=== PATIENT | female | born 1960 | race Caucasian/White ===

== ENCOUNTER → 2021-01-15 | Outpatient (CLI) | payer BC ==
[~2021-01-15] VITALS: Ht 162.6 cm; Wt 95.7 kg
[~2021-01-15] MED LIST: AVAPRO 150 MG150 MG PO; CLARITIN-D 241 EAC1 PO; DILTIAZEM ER180 M2 PO; DULOXETINE HCL30 MG PO; HYDROXYZINE HCL25 M2 PO; IBUPROFEN 800800 M1 PO; MOBIC15 MG PO; OMEPRAZOLE 20 M20 M1 PO; ROXICODONE5 M2 PO; SOMA350 MG PO; XANAX 0.25 MG0.25 MG PO
[2021-01-15 09:21] VITALS: BP 134/94
--- NOTE | 2021-01-15 10:05 | NUR ---
Pain Clinic Assessment: 1. History of Osteoarthritis: Left Upper Extremity Right Upper Extremity Left Lower Extremity Right Lower Extremity History of Rheumatoid Arthritis: Not Applicable 2. Height: 5 ft. 4 in. 162.6 cm. Weight: 211.0 lb. oz. 95.709 kg. Patient's BMI: 36.2 3. Vital Signs: BP: 134/94 Pulse: 88 Resp: 16 Temp: 02 Sat: 100 ECG Mon: 4. Pain Intensity: 4 5. Fall Risk: Dizziness: N Needs help standing or walking: N Fallen in the last 3 months: N Fall risk comments: 6. Patient on Blood Thinner: None 7. History of Hypertension: Y 8. Opioid Therapy greater than 6 weeks: Y Opiate Contract Signed: 9. Risk Assessment Tool Provided: LOW 10. Functional Assessment Tool: 11. Recreational Drug Use: Never Drug Type: Tobacco Use: Never Smoker Tobacco Type: Amount or Packs/day: How Many Years: Alcohol Use: Yes Frequency: Special Occasions Quant: 1-2
--- NOTE | 2021-01-16 14:53 | HPC ---
[facility] [address] [place] [address] PAIN MANAGEMENT CONSULTATION Name: SIDDHARTHA HUERTAS Room #: REG [facility] MSejal.#: [id number] Admission: 01/15/21 Attend Phys: Brett Gunn DO Discharge: Date of : 62 Report #: [id number] THIS REPORT FOR: cc: RANJAN SWARTZ Physician not on staff Brett Gunn DO ~ DATE OF SERVICE: 01/15/2021 REFERRING PHYSICIAN: Dr. Danny Shah CHIEF COMPLAINT: Axial back pain. HISTORY OF PRESENT ILLNESS: As you know, the patient is a 60-year-old female who suffers from longstanding history of low back pain that has been present for years. There was an exacerbation of symptoms about 6 months ago. She denies injury or trauma. She states that she has found improvement with IV Toradol and ciwf-lqg-ywpmygw nonsteroidal anti-inflammatories, but all other agents have been unsuccessful alleviating symptoms. The patient has sought evaluation through her primary care physician and her back joiner in regards to this issue. Imaging of the lumbar spine was obtained and was found that she had severe arthritic changes at the L5-S1 level and subsequently referred to our clinic to discuss interventional treatment options. The patient reports today pain is rhythmic. She describes the pain as cramping, throbbing, and sharp, places current pain score 4/10, daily average of 4/10, worst pain has been is 9/10. The patient states pain is exacerbated with heavy lifting and bending over. Pain tends to improve with rest, lying flat, IV Toradol and sdhv-rft-dbsftsy nonsteroidal anti-inflammatories. She has been referred to our service to discuss interventional treatment options to address axial back pain. PAST MEDICAL HISTORY: 1. Diabetes mellitus type 2. 2. Hypertension. 3. Degenerative joint disease. 4. Osteoarthritis. 5. Morbid obesity, status post gastric bypass. PAST SURGICAL HISTORY: 1. Hysterectomy. 2. Left total hip arthroplasty. 3. Gastric bypass. 4. Right total hip arthroplasty. 5. Right shoulder replacement. 6. Left shoulder replacement. [facility] [address] [place] [address] PAIN MANAGEMENT CONSULTATION Name: SIDDHARTHA HUERTAS Room #: REG [facility]..#: [id number] Admission: 01/15/21 Attend Phys: Brett Gunn DO Discharge: Date of : 62 Report #: [id number] SOCIAL HISTORY: The patient denies current tobacco use. Denies IV or illicit drug use. Admits to occasional alcohol beverage. 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 She is on FMLA for recent shoulder surgery. She is not in litigation in regards to pain. She is not receiving disability income. REVIEW OF SYSTEMS: Positive for fatigue and weakness, wearing corrective eyewear, cataracts, diabetes mellitus type 2, generalized osteoarthritis. All other review of systems negative per 12-point review of systems other than those listed in history of present illness. Pain impact score 24/70 indicating saag-us-spfemjrk interference of daily activities secondary to pain. ALLERGIES: SULFA, LEVAQUIN AND CIPROFLOXACIN. CURRENT MEDICATIONS: Ibuprofen 800 mg b.i.d. p.r.n., Claritin-D 1 tab per day, Soma 350 mg p.r.n., meloxicam 15 mg once a day, irbesartan 150 mg once a day, omeprazole 20 mg once a day, duloxetine 30 mg p.o. at bedtime, hydroxyzine 25 mg once a day, diltiazem ER 180 mg once a day. IMAGING: MRI of the lumbar spine and pelvis shows no evidence of sacroiliitis or acute internal derangement. There is multilevel lower lumbar spondylosis, most advanced at the L4-L5 and L5-S1 level with left greater than right. The soft tissue structures all appeared normal. PHYSICAL EXAMINATION: VITAL SIGNS: Blood pressure 134/94, pulse 88, respiratory rate 16 and unlabored. The patient is 100% on room air. Height 5 feet 4 inches tall, weight 211 pounds, BMI calculated 36.2. GENERAL: Well-developed, well-nourished, well-hydrated exogenously obese 60-year-old female appearing her stated age, placing current pain score around 4/10. HEENT: Normocephalic, atraumatic. Pupils are equal, round and reactive. NEUROLOGIC: Speech is fluent. The patient is wearing a mask in compliance with COVID-19 regulations. LUNGS: Appear clear. No wheeze, rhonchi or rales. CARDIOVASCULAR: Regular. No appreciable gallop, no rub. ABDOMEN: Soft, obese, normoactive bowel sounds. EXTREMITIES: Show no clubbing, no cyanosis. No appreciable edema. The patient is in a sling protecting the left upper extremity, status post total shoulder replacement. PHYSICAL EXAMINATION: MUSCULOSKELETAL: Lower extremity strength equal and symmetrical 5/5, intact to light touch from L1 through S2 dermatomes. Seated straight leg raising negative. Supine straight leg raising negative. Jeanna's test is negative. Modified Gaenslen's positive for axial low back pain. Ankle clonus negative. [address] [address] PAIN MANAGEMENT CONSULTATION Name: SIDDHARTHA HUERTAS Room #: REG [facility]#: [id number] Admission: 01/15/21 Attend Phys: Brett Gunn DO Discharge: Date of : 62 Report #: [id number] Babinski is negative. Stance is slightly forward flexed with minimal loss of lordotic curvature. Lumbar provocation testing including extension, rotation, lateral flexion all intensify axial back pain without radiation. There is palpatory tenderness over the L4-L5, L5-S1 facet joints bilaterally. ASSESSMENT: 1. Lumbosacral spondylosis without radiculopathy. 2. Facet arthropathy of the lumbar spine. 3. Chronic intractable pain. PLAN: 1. Based on today's physical exam and history the patient has provided, the description the patient uses in regards to pain as well as location of symptoms, the likely source of the patient's pain is the facet joints at L4-L5 and L5-S1. This is confirmed with recent imaging of the lumbar and pelvis area, which shows advanced arthritic changes at the L5-S1 level and wgluuftg-mr-vpvbvw changes at the L4-L5 level. These areas correlate to the pain location the patient is currently describing and the symptoms that she is experiencing that are axial in nature correlate with the facet distribution of pain. After our discussion of the findings of her MRI and how they correlate to her current symptoms, we then discussed the treatment options we have available. The following was discussed with the patient today. We discussed physical therapy, stretching exercise, core strengthening and a concerted effort at weight loss. This will be necessary for the patient to maintain analgesic benefit. Her centripetal obesity is increasing to accentuation of the lordotic curvature of the lumbar spine, leading to hyperlordotic condition, which places the facets at greater opposition causing increase in pain and increased arthritic changes. This could be improved with weight loss. We discussed medication management, though the patient has undergone gastric bypass, this will preclude her from remaining on nonsteroidal anti-inflammatories, which are the drug choice for this process. We discussed intra-articular facet injections, medial branch nerve blocks and radiofrequency lesioning as a treatment course. We also discussed StabiLink, a new percutaneous spinous process fusion device that could assist in her axial back pain. After reviewing the risks and benefits of all the proposed treatment options, the patient chose to move forward with medial branch nerve blocks and possible radiofrequency lesioning. 2. The patient was advised that due to third constitution party payer restrictions, authorization would have to be obtained before the patient could undergo medial branch nerve blocks and radiofrequency lesioning. The patient was advised that this authorization could take anywhere from 24-72 hours to obtain. We will begin that process immediately. Once it has been completed, we will have the patient return for medial branch blocks. We had considered originally looking towards facet injections, but given the severity of the findings at the L5-S1 level, more definitive treatment would be necessary. We will obtain [address] [address] PAIN MANAGEMENT CONSULTATION Name: SIDDHARTHA HUERTAS Room #: REG [facility]#: [id number] Admission: 01/15/21 Attend Phys: Brett Gunn DO Discharge: Date of : 62 Report #: [id number] authorization on medial branch blocks and hopefully have the patient back in the next 24 hours. 3. No medication changes made at today's visit. The patient will continue current medical therapy as prior prescribed. 4. We plan to see the patient back in followup visit as quickly as we can obtain authorization for the patient to undergo medial branch nerve blocks and possibly progressing towards radiofrequency lesioning of medial branch nerves to address axial back pain. 5. We wish to thank Dr. Danny Shah for the opportunity to see this patient in consultation. We will keep you apprised of her response to treatment as we address facet arthropathy pain. Again, we wish to thank you for the opportunity to see the patient in consultation. <ELECTRONICALLY SIGNED> By: Brett Gunn DO 01/16/21 [id number] [id number] Brett Gunn DO /nt
== END ==
LOC: PAIN 12-25 09:25
PROVIDERS: ATTEND Anesthesiology Pain Medicine
DX: M47.26 Other spondylosis with radiculopathy, lumbar region (principal); G89.29 Other chronic pain

== ENCOUNTER → 2021-01-16 | Outpatient (CLI) | payer BC ==
[~2021-01-16] VITALS: Ht 162.6 cm; Wt 95.7 kg
--- NOTE | ~2021-01-16 | HPC ---
[facility] [place] [address] PAIN MANAGEMENT CONSULTATION Name: SIDDHARTHA HUERTAS Room #: REG [facility]y.#: [id number] Admission: 01/16/21 Attend Phys: Brett Gunn DO Discharge: Date of : 62 Report #: [id number] THIS REPORT FOR: cc: RANJAN HILL Physician not on staff Brett Gunn DO ~ DATE OF SERVICE: 01/16/2021 REFERRING PHYSICIAN: Dr. Danny Shah. PRIMARY CARE PHYSICIAN: Dr. Ranjan Hill. CHIEF COMPLAINT: Axial back pain. HISTORY OF PRESENT ILLNESS: As you know, the patient is a 60-year-old female with longstanding history of low back pain, presenting years ago. She states that she had exacerbation of symptoms about 6 months ago. Denies injury or trauma. She was seen in consultation per the request of Dr. Danny Shah, the patient's rn nicu, for axial back pain. She was diagnosed with lumbosacral spondylosis without radiculopathy and facet arthropathy of the lumbar spine, which is the source of her symptoms. She was established today's appointment to undergo medial branch nerve blocks to address axial back pain. If she sees significant improvement with the initial injections, we will have her return for a second in series with a different medication. If again this shows good benefit, we would then move forward with radiofrequency lesioning for a more permanent treatment option. We also discussed at that last visit the possibility of fusion with the staple length product to address the L5-S1 level, specifically. The patient is considering this option, but wishes to begin with the medial branch nerve blocks, established the appointment today. The patient reports pain level today of about 9/10. ALLERGIES: SULFA, LEVAQUIN, CIPROFLOXACIN. CURRENT MEDICATIONS: Ibuprofen, Claritin-D, meloxicam, Soma, irbesartan, omeprazole, duloxetine, hydroxyzine, diltiazem ER. SOCIAL HISTORY: The patient denies current tobacco use. Denies IV or illicit drug use. Admits to occasional alcohol beverage. 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 She is on FMLA due to recent surgery. Unaccompanied today. IMAGING: No new imaging available. PHYSICAL EXAMINATION: VITAL SIGNS: Blood pressure 135/68, pulse 94, respiratory rate 16 and unlabored. The patient is 100% on room air. Height 5 feet 4 inches tall, [facility] [address] [place] [address] PAIN MANAGEMENT CONSULTATION Name: SIDDHARTHA HUERTAS [facility] [id number] Admission: 01/16/21 Attend Phys: Brett Gunn DO Discharge: Date of : 62 Report #: [id number] weight 211 pounds, BMI calculated at 36.2. GENERAL: Well-developed, well-nourished, well-hydrated, exogenously obese 60-year-old female appearing stated age, pain is rated today at 9/10. HEENT: Normocephalic, atraumatic. Pupils are round and responsive. The patient is wearing a mask in compliance with COVID-19 regulations. EXTREMITIES: Show no clubbing, no cyanosis. No appreciable edema. MUSCULOSKELETAL: The patient remains in a sling with the left upper extremity, status post total shoulder replacement. Lower extremity strength is symmetrical, 5/5. Seated straight leg raising negative. Supine straight leg raising negative. Jeanna's test negative. Modified Gaenslen's positive for axial low back pain. Lumbar provocation testing including rotation and lateral flexion all intensifies axial back pain. Forward flexion improves the patient's symptoms. ASSESSMENT: 1. Lumbosacral spondylosis without radiculopathy. 2. Facet arthropathy of the lumbar spine. 3. Chronic intractable pain. PLAN: 1. The patient has returned today in followup visit to undergo medial branch nerve blocks to address L3, L4, L5 medial branch nerves respectively. The patient was established today's appointment to undergo the procedure. She has been advised risks and benefits of the procedure. These risks include but are not necessarily limited to bleeding, bruising, infection, worsening pain, no relief of pain, also risk of temporary or permanent muscle weakness, temporary or permanent nerve damage, possible paralysis and . The patient states she understood and wished to proceed. 2. The patient was provided a prescription of Xanax 0.25 mg, she is to take one tab 30 minutes prior to her arrival at our appointment next week to address anxiety. She will be then given a second dose if necessary upon arrival. She will need a package car driver for transportation as she cannot drive or operate heavy equipment while on this medication. She was given #4 tablets, 2 for this next series of medial branch nerve blocks and if we move towards radiofrequency lesioning, 2 for the lesioning process. 3. We will see the patient back in followup visit next week for possible second in the series of medial branch blocks assuming she sees good and prolonged benefit with today's procedure. PROCEDURE NOTE PROCEDURE: Bilateral L3, L4, L5 medial branch blocks under fluoroscopic guidance. DESCRIPTION OF PROCEDURE: After obtaining written consent, the patient was taken back to fluoroscopy suite, placed in prone position with pillow under [address] [address] PAIN MANAGEMENT CONSULTATION Name: SIDDHARTHA HUERTAS Room #: REG [facility]#: [id number] Admission: 01/16/21 Attend Phys: Brett Gunn DO Discharge: Date of : 62 Report #: [id number] abdomen to decrease lumbar lordosis. Skin overlying lumbosacral area was then prepped and draped in aseptic fashion. The L4 transverse process corresponding the L3 medial branch nerve and the L5 transverse process corresponding the L4 medial branch nerve were visualized under AP fluoroscopy. The skin and subcutaneous tissue overlying target site of injection were anesthetized with 1 mL of 1% lidocaine utilizing a 27-gauge 1-1/4 inch needle. Four 22-gauge 3-1/2 inch spinal needles with bent tips were advanced under fluoroscopic guidance using a superior and inferior lateral to medial approach to the dorsal superior and medial aspect of the base of the transverse processes. The needles were then directed to reach their target locations. Oblique view facilitated needle placement with properly positioned needles within the middle of the eye of the [place] dog for each of the medial branch blocks. At each site, needles rested on periosteum. After negative aspiration for heme, 1 mL of bupivacaine 0.5% was injected slowly to avoid forcing the solution away from the target points. Colby were then removed. L5 dorsal ramus block, both on the left and right side was performed using a slightly oblique approach under fluoroscopic guidance, placing the needle within the groove between the sacral ala and the superior articular process of S1. Needle rested on periosteum. After negative aspiration for heme, 1 mL of bupivacaine 0.5% was injected at each site slowly to avoid forcing the solution away from the target points. Colby were then removed. Sterile bandage placed over injection sites. The patient tolerated procedure well, carefully escorted to recovery room in stable condition. No apparent complications. VAS before procedure rated at 9/10, VAS 10 minutes after procedure rated anywhere from 0-1-1/2/10. After meeting our discharge criteria, the patient discharged home. By: 1530 [id number] Brett Gunn, /nt
[2021-01-16 13:39] VITALS: BP 135/68
--- NOTE | 2021-01-16 13:50 | NUR ---
Pain Clinic Assessment: 1. History of Osteoarthritis: Left Upper Extremity Right Upper Extremity Left Lower Extremity Right Lower Extremity History of Rheumatoid Arthritis: Not Applicable 2. Height: 5 ft. 4 in. 162.6 cm. Weight: 211.0 lb. oz. 95.709 kg. Patient's BMI: 36.2 3. Vital Signs: BP: 135/68 Pulse: 94 Resp: 16 Temp: 02 Sat: 100 ECG Mon: 4. Pain Intensity: 9 5. Fall Risk: Dizziness: N Needs help standing or walking: N Fallen in the last 3 months: N Fall risk comments: 6. Patient on Blood Thinner: None 7. History of Hypertension: Y 8. Opioid Therapy greater than 6 weeks: Y Opiate Contract Signed: 9. Risk Assessment Tool Provided: LOW 10. Functional Assessment Tool: 11. Recreational Drug Use: Never Drug Type: Tobacco Use: Never Smoker Tobacco Type: Amount or Packs/day: How Many Years: Alcohol Use: Yes Frequency: Quant:
== END | disposition home or self-care (01) ==
LOC: PAIN 06:54
PROVIDERS: ATTEND Anesthesiology Pain Medicine
DX: M47.817 Spondylosis without myelopathy or radiculopathy, lumbosacral region (principal); M47.816 Spondylosis without myelopathy or radiculopathy, lumbar region; G89.29 Other chronic pain; Z98.890 Other specified postprocedural states; Z79.899 Other long term (current) drug therapy; Z88.2 Allergy status to sulfonamides; Z88.8 Allergy status to other drugs, medicaments and biological substances

== ENCOUNTER → 2021-01-22 | Outpatient (CLI) | payer BC ==
[~2021-01-22] VITALS: Ht 162.6 cm; Wt 99.7 kg
[2021-01-22 09:18] VITALS: BP 119/77
--- NOTE | 2021-01-22 09:30 | NUR ---
Pain Clinic Assessment: 1. History of Osteoarthritis: Left Upper Extremity Right Upper Extremity Left Lower Extremity Right Lower Extremity History of Rheumatoid Arthritis: Not Applicable 2. Height: 5 ft. 4 in. 162.6 cm. Weight: 219.8 lb. oz. 99.701 kg. Patient's BMI: 37.7 3. Vital Signs: BP: 119/77 Pulse: 95 Resp: 16 Temp: 02 Sat: 100 ECG Mon: 4. Pain Intensity: 8 5. Fall Risk: Dizziness: N Needs help standing or walking: N Fallen in the last 3 months: N Fall risk comments: 6. Patient on Blood Thinner: None 7. History of Hypertension: Y 8. Opioid Therapy greater than 6 weeks: Y Opiate Contract Signed: 9. Risk Assessment Tool Provided: LOW 10. Functional Assessment Tool: 11. Recreational Drug Use: Never Drug Type: Tobacco Use: Never Smoker Tobacco Type: Amount or Packs/day: How Many Years: Alcohol Use: Yes Frequency: Quant:
--- NOTE | 2021-01-23 10:35 | HPC ---
[facility] [place] [address] PAIN MANAGEMENT CONSULTATION Name: SIDDHARTHA HUERTAS Room #: REG [facility] M..#: [id number] Admission: 01/22/21 Attend Phys: Brett Gunn DO Discharge: Date of : 62 Report #: [id number] THIS REPORT FOR: cc: RANJAN SWARTZ Physician not on staff Brett Gunn DO ~ DATE OF SERVICE: 01/22/2021 REFERRING PHYSICIAN: CHIEF COMPLAINT: Low back pain. HISTORY OF PRESENT ILLNESS: As you know, the patient is a very pleasant 60-year-old female who has returned today in followup visit to undergo second in the series of medial branch nerve blocks to address axial back pain due to facet arthropathy. The patient did very well with previous injections provided last week, which gave 100% improvement in overall pain lasting for nearly 4 hours. Her symptoms did return over the next ensuing 3 hours back to its normal baseline, which is consistent with the block provided. She returns today for the second in the series. If these are then successful, move forward with radiofrequency lesioning. Pain level today is about 6-7/10. ALLERGIES: SULFA, LEVAQUIN AND CIPROFLOXACIN. CURRENT MEDICATIONS: Ibuprofen, Claritin-D, meloxicam, Soma, irbesartan, omeprazole, duloxetine, hydroxyzine, diltiazem ER. SOCIAL HISTORY: The patient denies current tobacco use. Denies IV or illicit drug use. Admits to occasional alcohol beverage. 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 She is unaccompanied today. IMAGING: No new imaging available. PHYSICAL EXAMINATION: GENERAL: Well-developed, well-nourished, well-hydrated exogenously obese 60-year-old female appearing stated age, pain is rated up to 6-7/10. HEENT: Normocephalic, atraumatic. The patient is wearing a mask in compliance with COVID-19 regulations. EXTREMITIES: Show no clubbing, no cyanosis and no edema. MUSCULOSKELETAL: Lower extremity strength is equal and symmetrical, 5/5. Seated straight leg raising negative. Supine straight leg raising negative. Jeanna's test negative. Modified Gaenslen's positive for axial low back pain. Lumbar provocation testing is once again met with increasing pain. ASSESSMENT: [address] [address] PAIN MANAGEMENT CONSULTATION Name: SIDDHARTHA HUERTAS Room #: REG [facility]#: [id number] Admission: 01/22/21 Attend Phys: Brett Gunn DO Discharge: Date of : 62 Report #: [id number] 1. Lumbosacral spondylosis without radiculopathy. 2. Facet arthropathy of the lumbar spine. 3. Chronic intractable pain. PLAN: 1. The patient returns today in followup visit having noted 100% improvement in overall pain lasting for nearly 4 hours with the medial branch blocks provided at last visit and then subsequent return of pain. She returns today to undergo second in the series of medial branch blocks in hopes of improving symptoms further. The patient has been advised risks and benefits of the procedure, states understood and wished to proceed. 2. The patient did very well with today's medial branch block with near 100% improvement in overall pain prior to discharge. We will schedule the patient back to undergo medial branch radiofrequency lesioning of the nerves of the lumbar spine as quickly as possible. PROCEDURE NOTE PROCEDURE: Bilateral L3, L4, L5 medial branch blocks under fluoroscopic guidance, block #2. DESCRIPTION OF PROCEDURE: After obtaining written consent, the patient was taken back to fluoroscopy suite, placed in prone position with pillow under abdomen to decrease lumbar lordosis. Skin overlying lumbosacral area then prepped and draped in aseptic fashion. The L4 transverse process corresponding to the L3 medial branch nerve and the L5 transverse process corresponding to the L4 medial branch nerve were visualized under AP fluoroscopy. Skin and subcutaneous tissue overlying target site injection were anesthetized with 1 mL of 1% lidocaine utilizing 27-gauge 1-1/4 inch needle. Four 22-gauge 3-1/2 inch spinal needles with bent tips were advanced under fluoroscopic guidance using a superior to inferior, lateral to medial approach to the dorsal superior and medial aspect of the base of the transverse processes. [place] were then directed to reach their target locations. Oblique view facilitated needle position with properly positioned needles within the middle of the eye of the Zachary dog at each level. At each site, needles rested on periosteum. After negative aspiration for heme, 1 mL of bupivacaine 0.5% was injected slowly to avoid forcing the solution away from target points. [place] were then removed. L5 dorsal ramus block, both on the left and right side was performed using a slightly oblique approach under fluoroscopic guidance, placing the needle within the groove between the sacral ala and the superior articular process of S1. Needle rested on periosteum. After negative aspiration for heme, 1 mL of bupivacaine 0.5% was injected at each site. [place] were then removed. Sterile [address] [address] PAIN MANAGEMENT CONSULTATION Name: SIDDHARTHA HUERTAS Room #: BRIT JiSejal#: [id number] Admission: 01/22/21 Attend Phys: Brett Gunn DO Discharge: Date of : 62 Report #: [id number] bandage placed over injection site. The patient tolerated procedure well, carefully escorted to recovery room in stable condition. No apparent complications. VAS before procedure rated anywhere from 6-7/10, VAS after procedure 0-1/10. After meeting our discharge criteria, the patient discharged home. <ELECTRONICALLY SIGNED> By: Brett Gunn DO 01/23/21 1035 1423 1441 Brett Gunn DO /nt
== END | disposition home or self-care (01) ==
LOC: PAIN 06:40
PROVIDERS: ATTEND Anesthesiology Pain Medicine
DX: M47.817 Spondylosis without myelopathy or radiculopathy, lumbosacral region (principal); M47.816 Spondylosis without myelopathy or radiculopathy, lumbar region; G89.29 Other chronic pain; Z98.890 Other specified postprocedural states; Z79.899 Other long term (current) drug therapy; Z88.2 Allergy status to sulfonamides; Z88.8 Allergy status to other drugs, medicaments and biological substances

== ENCOUNTER → 2021-01-29 | Outpatient (CLI) | payer BC ==
[~2021-01-29] VITALS: Ht 162.6 cm; Wt 101.7 kg
[2021-01-29 13:53] VITALS: BP 142/76
--- NOTE | 2021-01-29 14:05 | NUR ---
Pain Clinic Assessment: 1. History of Osteoarthritis: Left Upper Extremity Right Upper Extremity Left Lower Extremity Right Lower Extremity History of Rheumatoid Arthritis: Not Applicable 2. Height: 5 ft. 4 in. 162.6 cm. Weight: 224.2 lb. oz. 101.697 kg. Patient's BMI: 38.5 3. Vital Signs: BP: 142/76 Pulse: 73 Resp: 18 Temp: 02 Sat: 97 ECG Mon: 4. Pain Intensity: 7 5. Fall Risk: Dizziness: N Needs help standing or walking: N Fallen in the last 3 months: N Fall risk comments: 6. Patient on Blood Thinner: None 7. History of Hypertension: Y 8. Opioid Therapy greater than 6 weeks: Y Opiate Contract Signed: 9. Risk Assessment Tool Provided: LOW 10. Functional Assessment Tool: 11. Recreational Drug Use: Never Drug Type: Tobacco Use: Never Smoker Tobacco Type: Amount or Packs/day: How Many Years: Alcohol Use: Yes Frequency: Monthly Quant: 1
--- NOTE | 2021-01-30 07:28 | HPC ---
[facility] [place] [address] PAIN MANAGEMENT CONSULTATION Name: SIDDHARTHA HUERTAS Room #: REG [facility]al.#: [id number] Admission: 01/29/21 Attend Phys: Brett Gunn DO Discharge: Date of : 62 Report #: [id number] THIS REPORT FOR: cc: RANJAN SWARTZ Physician not on staff Brett Gunn DO ~ DATE OF SERVICE: 01/29/2021 CHIEF COMPLAINT: Low back pain. HISTORY OF PRESENT ILLNESS: As you know, the patient is a very pleasant 60-year-old female who has completed 2 medial branch nerve blocks bilaterally that has addressed axial back pain. The most recent gave near 100% improvement in overall pain, lasting for 6 hours. She returns today in followup visit to undergo radiofrequency lesioning of the right L3, L4 and L5 medial branch nerves as part of the staged radiofrequency procedure. Plan is to return in 2 weeks to undergo left L3, L4, L5 radiofrequency lesioning. She places pain today at a level of 7/10. She returns today for radiofrequency lesioning of the right L3, L4 and L5 medial branch nerves. ALLERGIES: SULFA, LEVAQUIN, CIPROFLOXACIN. CURRENT MEDICATIONS: Ibuprofen, Claritin-D, meloxicam, Soma, irbesartan, omeprazole, duloxetine, hydroxyzine, diltiazem ER. SOCIAL HISTORY: The patient denies tobacco. Denies IV or illicit drug use. Admits to occasional alcohol beverage. 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 IMAGING: No new imaging available. PHYSICAL EXAMINATION: VITAL SIGNS: Blood pressure 142/76, pulse 73, respiratory rate 18 and unlabored. The patient is 97% on room air. Height 5 feet 4 inches tall, weight 224.2 pounds, BMI calculated 38.5. GENERAL: A well-developed, well-nourished, well-hydrated exogenously obese 60-year-old female appearing stated age, placing current pain score at 7/10. HEENT: Normocephalic, atraumatic. Pupils are round and responsive. The patient is wearing a mask in compliance with COVID-19 regulations. EXTREMITIES: Show no clubbing, no cyanosis. No appreciable edema. MUSCULOSKELETAL: Seated straight leg raising negative. Supine straight leg raising negative. Jeanna's test is negative. Modified Gaenslen's positive for axial back pain. Lower extremity strength remains symmetrical, 5/5. ASSESSMENT: 1. Lumbosacral [place]ondylosis [place] [address] PAIN MANAGEMENT CONSULTATION Name: SIDDHARTHA HUERTAS Room #: REG [facility]#: [id number] Admission: 01/29/21 Attend Phys: Brett Gunn DO Discharge: Date of : 62 Report #: [id number] 2. Facet arthropathy of the lumbar spine. 3. Chronic intractable pain. PLAN: 1. The patient returns today in followup visit to undergo radiofrequency lesioning of the medial branch nerves of the lumbar spine. The patient has had excellent benefit with the bilateral medial branch blocks provided at the last 2 visits, the most recent giving a near 6 hours of complete resolution of pain. Her pain did return to its normal baseline level and she returns today to undergo radiofrequency lesioning of medial branch nerves on the right with plans to undergo radiofrequency lesioning on the left in 2 weeks. 2. The patient was provided a refill prescription of her alprazolam. I have given her 0.5 mg 2 tabs to be taken prior to the radiofrequency lesioning on the left. The patient tolerated the radiofrequency lesioning well, but was very anxious and we did have some trouble keeping her comfortable on the bed. We will adjust her medications for the next visit. She will take this prior to our procedure. 3. We will see the patient back in followup visit in 2 weeks for radiofrequency lesioning of the left medial branch nerves of the lumbar spine. PROCEDURE NOTE DESCRIPTION OF PROCEDURE: Right L3, L4, and L5 lumbar medial branch radiofrequency ablations under fluoroscopic guidance. The procedure was explained and informed consent was obtained from the patient. The patient was informed of the risks of the procedure including infection, bleeding, nerve damage, failure to produce pain relief and postoperative discomfort lasting for several weeks. The patient was then taken to the fluoroscopy suite, placed in prone position with pillow under abdomen to decrease lumbar lordosis. Skin overlying lumbosacral area prepped and draped in aseptic fashion. AP imaging of the lumbar spine was used to identify the L2 through L5 vertebral bodies and the sacral ala. The target locations on the right side of the L4 transverse process corresponding the L3 medial branch nerve and the L5 transverse process corresponding the L4 medial branch nerve were established. Using a 27-gauge, 1-1/4 inch needle, skin wheals were placed at the junction of the transverse process and the respective superior articular process using 1 mL of 1% lidocaine. We were careful to only anesthetize the skin and not the deep tissues. The radiofrequency lesioning needles were advanced under fluoroscopic guidance using a superior, inferior, lateral to medial approach, the dorsal superior and medial aspect of the base of the transverse processes. [place] were then directed caudad to reach target locations. Oblique view facilitated needle placement with properly positioned needles within the middle of the "eye" of the Zachary dog. At each site, the needles rested on periosteum. Touching [facility] [address] [place] [address] PAIN MANAGEMENT CONSULTATION Name: MARY HUERTASELE Room #: REG [facility].#: [id number] Admission: 01/29/21 Attend Phys: Brett Gunn DO Discharge: Date of : 62 Report #: [id number] bone initially assured that the needles were not placed too deeply. Radiofrequency lesioning of the L5 medial branch nerve on the right side was performed using a superior to inferior, lateral to medial approach under fluoroscopic guidance, placing the needle within the groove between the sacral ala and the superior articular process of S1. Needle rested on periosteum. Stimulation was performed at each level once the cannulas were in position. Sensory stimulation was performed at 0.3 and 0.5 with good impedance of 304, 292 and 320 at 50 Hz for the L3, L4, and L5 medial branch nerves respectively. Good stimulation of the lumbar and buttock region was elicited, indicating correct alignment with the posterior primary ramus. Absence of lower motor fasciculation was noted at 3 volts 2 Hz stimulation during testing of the L3, L4, and L5 medial branch nerves on the right respectively. Following this, affirmation of disassociation between sensory and motor stimulation, negative aspiration was noted for heme or cerebrospinal fluid at each level. Next, 1 mL of bupivacaine 0.5% was injected. After a 90-second delay, lesions were performed at a temperature of 80 degrees Celsius for a total of 90 seconds. After the needles had cooled, 1 mL of a solution containing 1 mL 40 mg per mL, 40 mg total triamcinolone and 3 mL of bupivacaine 0.5% injected slowly. [place] were removed sequentially. At the end of the procedure, the patient was noted to be able to move all 4 extremities purposefully. A sterile bandage placed over each injection site. The patient tolerated procedure well, carefully escorted to recovery room in stable condition. No apparent complications. After meeting our discharge criteria, the patient was then discharged home. <ELECTRONICALLY SIGNED> By: Brett Gunn DO 01/30/21 0728 1728 1826 Brett Gunn DO /nt
== END | disposition home or self-care (01) ==
LOC: PAIN 07:01
PROVIDERS: ATTEND Anesthesiology Pain Medicine
DX: M47.816 Spondylosis without myelopathy or radiculopathy, lumbar region (principal); M47.817 Spondylosis without myelopathy or radiculopathy, lumbosacral region; G89.29 Other chronic pain; Z98.890 Other specified postprocedural states; Z79.899 Other long term (current) drug therapy; Z88.2 Allergy status to sulfonamides; Z88.8 Allergy status to other drugs, medicaments and biological substances

== ENCOUNTER → 2021-02-13 | Outpatient (CLI) | payer BC ==
[~2021-02-13] VITALS: Ht 162.6 cm; Wt 98.3 kg
[2021-02-13 09:19] VITALS: BP 132/83
--- NOTE | 2021-02-13 09:33 | NUR ---
Pain Clinic Assessment: 1. History of Osteoarthritis: Left Upper Extremity Right Upper Extremity Left Lower Extremity Right Lower Extremity History of Rheumatoid Arthritis: Not Applicable 2. Height: 5 ft. 4 in. 162.6 cm. Weight: 216.8 lb. oz. 98.340 kg. Patient's BMI: 37.2 3. Vital Signs: BP: 132/83 Pulse: 93 Resp: 16 Temp: 02 Sat: 99 ECG Mon: 4. Pain Intensity: 4 5. Fall Risk: Dizziness: N Needs help standing or walking: N Fallen in the last 3 months: N Fall risk comments: 6. Patient on Blood Thinner: None 7. History of Hypertension: Y 8. Opioid Therapy greater than 6 weeks: Y Opiate Contract Signed: 9. Risk Assessment Tool Provided: LOW-0 10. Functional Assessment Tool: 11. Recreational Drug Use: Never Drug Type: Tobacco Use: Never Smoker Tobacco Type: Amount or Packs/day: How Many Years: Alcohol Use: Yes Frequency: Monthly Quant: 1
--- NOTE | 2021-02-19 08:06 | HPC ---
[facility] [place] [address] PAIN MANAGEMENT CONSULTATION Name: SIDDHARTHA HUERTAS Room #: REG [facility]..#: [id number] Admission: 02/13/21 Attend Phys: Brett Gunn DO Discharge: Date of : 62 Report #: [id number] THIS REPORT FOR: cc: RANJAN SWARTZ Physician not on staff Brett Gunn DO ~ DATE OF SERVICE: 02/13/2021 CHIEF COMPLAINT: Axial back pain. HISTORY OF PRESENT ILLNESS: As you know, the patient is a very pleasant 60-year-old female who has returned today in followup visit to undergo second in the series of the staged radiofrequency lesioning of the medial branch of the lumbar spine. She successfully completed right L3, L4, L5 RFA with greater than 50% improvement in overall pain. She returns today in followup visit to complete the left side addressing the L3, L4, L5 medial branch nerves respectively. She is placing pain score 4/10. States her pain is cramping, throbbing, and sharp in sensation, exacerbated with lifting heavy objects and bending over. She is extremely pleased with response to the right radiofrequency lesioning procedure and is excited to undergo the left. She returns today to undergo left L3, L4, L5 RFA of the medial branch nerves. ALLERGIES: SULFA, LEVAQUIN, AND CIPROFLOXACIN. CURRENT MEDICATIONS: See chart. SOCIAL HISTORY: The patient denies tobacco. Denies IV or illicit drug use. Admits to occasional alcohol beverage. 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 PHYSICAL EXAMINATION: VITAL SIGNS: Blood pressure 132/83, pulse 93, respiratory rate 16 and unlabored. The patient is 99% on room air. Height 5 feet 4 inches tall, weight 216.8 pounds, BMI calculated 37.2. GENERAL: Well-developed, well-nourished, well-hydrated 60-year-old female, appears stated age, no acute distress, awake, alert and oriented x 3. Current pain score is rated at 4/10. HEENT: Normocephalic, atraumatic. Extraocular muscles are intact. The patient is wearing a mask in compliance with COVID-19 regulations. EXTREMITIES: Show no clubbing, no cyanosis. No appreciable edema. MUSCULOSKELETAL: Lower extremity strength remains symmetrical 5/5. Muscle bulk and tone is equal and symmetrical when comparing lower extremities. Modified Gaenslen's positive, mainly for axial back pain on the left, though there is some residual pain on the right. Spinous process tenderness is negative. ASSESSMENT: [address] [address] PAIN MANAGEMENT CONSULTATION Name: SIDDHARTHA HUERTAS Room #: REG [facility]#: [id number] Admission: 02/13/21 Attend Phys: Brett Gunn DO Discharge: Date of : 62 Report #: [id number] 1. Lumbosacral spondylosis with radiculopathy. 2. Facet arthropathy of the lumbar spine. 3. Chronic intractable pain. PLAN: 1. The patient returns today in followup visit to undergo left L3, L4, L5 radiofrequency lesioning of the medial branch nerves of the lumbar spine. The patient has been advised of the risks and the benefits of this procedure. She does wish to proceed. She is very pleased with the procedure and how it affected her right side with almost 50% improvement in overall pain at this time. She is hopeful that the residual pain she is experiencing today for which she gives a pain score of 4/10, will improve as well. She has been consented to undergo the procedure today. 2. No medication changes made at today's visit. The patient will continue current medical therapy as prior prescribed. 3. We plan to see the patient back in followup visit in 31 days. At that time, review the efficacy of a series of medial branch ablations and determine if any changes in medication management and need to be addressed or if she is doing well, returning her care referring physician. We will see her back in 30-31 days. PROCEDURE NOTE DESCRIPTION OF PROCEDURE: Left L3, L4, L5, lumbar medial branch radiofrequency ablations under fluoroscopic guidance. The procedure was explained. Informed consent was obtained from the patient. The patient was informed of the risks of procedure including infection, bleeding, nerve damage, failure to produce pain relief and postoperative discomfort lasting for several weeks. The patient was then taken to the fluoroscopy suite, placed in prone position with pillow under abdomen to decrease lumbar lordosis. Skin overlying lumbosacral area then prepped and draped in aseptic fashion. AP imaging of the lumbar spine was used to identify the L2 through L5 vertebral bodies and the sacral ala. Target locations on the left side of the L4 transverse process corresponding the L3 medial branch nerve and the L5 transverse process corresponding the L4 medial branch nerve were established. Using a 27-gauge, 1-1/4 inch needle, skin Wheels were placed at the junction of the transverse processes and the respective superior articular process using 1 mL of 1% lidocaine. We were careful to only anesthetize skin and not the deep tissues. Radiofrequency lesioning needles were then advanced under fluoroscopic guidance using a superior to inferior, lateral to medial approach to the dorsal and superior aspect of the base of transverse processes. [place] were then directed caudad to reach target location. Oblique view facilitated needle placement with properly positioned needles within the middle of the eye of the Zachary dog. At [facility] [address] [address] PAIN MANAGEMENT CONSULTATION Name: SIDDHARTHA HUERTAS Room #: REG [facility].#: [id number] Admission: 02/13/21 Attend Phys: Brett Gunn DO Discharge: Date of : 62 Report #: [id number] each site, needles rested on periosteum. Touching bone initially assured the needles were not placed too deeply. Radiofrequency lesioning of the L5 medial branch nerve on the left side was performed using a superior and inferior, lateral to medial approach under fluoroscopic guidance, placing the needle within the groove between the sacral ala and the superior articular process of S1. Needle rested on periosteum. Stimulation was then performed at each level once the cannulas were in position. Sensory stimulation was performed at 0.2, 0.2 and 0.2 with good impedance at 387, 312, 391 at 50 Hz for the L3, L4, L5 medial branch nerves respectively. Good stimulation of the lumbar and buttock region was elicited indicating correct alignment with the posterior primary ramus. Absence of lower motor fasciculation was noted at 3 volts 2 Hz stimulation when testing the L3, L4, L5 medial branch nerves on the left respectively. Following this, affirmation of dissociation between sensory and motor stimulation and negative aspiration for heme noted at all 3 levels, 1 mL of bupivacaine 0.5% was injected. After a 90-second delay, lesions were performed at a temperature of 80 degrees Celsius for a total of 90 seconds. After the needle tips had cooled, 1 mL of a solution containing 1 mL 40 mg per mL, 40 mg total triamcinolone along with 3 mL bupivacaine 0.5% injected slowly. [place] were removed sequentially. At the end of the procedure, the patient was able to move all 4 extremities purposely. Sterile bandage was placed over each injection site. The patient tolerated procedure well, carefully escorted to recovery room in stable condition. No apparent complications. After meeting discharge criteria, the patient discharged home. <ELECTRONICALLY SIGNED> By: Brett Gunn DO 02/19/21805 1037 20 Brett Gunn DO /nt
== END | disposition home or self-care (01) ==
LOC: PAIN 06:50
PROVIDERS: ATTEND Anesthesiology Pain Medicine
DX: M47.816 Spondylosis without myelopathy or radiculopathy, lumbar region (principal); M47.27 Other spondylosis with radiculopathy, lumbosacral region; G89.29 Other chronic pain; Z98.890 Other specified postprocedural states; Z79.899 Other long term (current) drug therapy; Z88.2 Allergy status to sulfonamides; Z88.8 Allergy status to other drugs, medicaments and biological substances